=== PATIENT | female | born 1950 | race Caucasian/White ===

== ENCOUNTER → 2022-09-27 15:36 | Outpatient (CLI) | payer BC, SELFPAY ==
--- NOTE | 2022-09-27 15:37 | DI.RAD.S_ITS ---
PROCEDURE: XR FOOT LT MIN 3V INDICATIONS: Left foot injury TECHNIQUE: 3 views of the foot were acquired. COMPARISON: None. FINDINGS: Bones: Moderate hallux valgus is seen with moderate 1st MTP joint osteoarthritis. No fractures or dislocations. No suspicious bony lesions. Soft tissues: No tibiotalar joint effusion. Achilles tendon appears normal. IMPRESSION: Moderate hallux valgus and 1st MTP joint osteoarthritis. No fracture or dislocation. No gross soft tissue abnormalities. Dictated by: Roland Bullard M.D. on 09/27/2022 at 17:26 Approved by: Roland Bullard M.D. on 09/27/2022 at 17:26
== END ==
PROVIDERS: Referring Provider Nurse Practitioner Family; Visit Provider Nurse Practitioner Family
DX: S99.922A Unspecified injury of left foot, initial encounter (principal); M20.12 Hallux valgus (acquired), left foot; M19.072 Primary osteoarthritis, left ankle and foot; X58.XXXA Exposure to other specified factors, initial encounter
CPT/HCPCS: 73630